=== PATIENT | female | born 1980 | race African-American/Black ===

== ENCOUNTER 2021-05-14 17:58 | Emergency (ER) | payer SELFPAY ==
[2021-05-14] MEDS ORDERED: Bisacodyl 10 MG SUPP ONE (20:08)
[2021-05-14] MEDS ORDERED: Ondansetron PF 4 MG/2 ML Vial ONE (20:09)
[2021-05-14] MEDS ORDERED: Morphine 4 MG/ML VIAL ONE (20:10)
[2021-05-14] MEDS ORDERED: Haloperidol Lactate 5 MG/ML VIAL ONE (21:26)
[2021-05-14] MEDS ORDERED: Glycerin Adult Supp. (24 ct jar) RC SCH (21:45)
[2021-05-14 21:52] LABS: #Monocytes 0.4 10x3/uL (0.0-1.1); %Basophils 0.2 % (0.0-2.0); %Eosinophils 0.1 % (0.0-6.0); %Lymphocytes 11.1 % (18.0-47.0); %Monocytes 2.8 % (0.0-10.0); %Neutrophils 85.5 % (40.0-75.0); Mean Corpuscular HGB CONC 32.7 g/dL (32.0-36.0); Mean Corpuscular Hemoglobin 33.7 pg (27.0-33.0); Mean Corpuscular Volume 102.8 fl (81.6-98.3); Mean Platelet Volume 9.8 fl (7.4-10.4); Platelet Count 315 10x3/uL (150-450); RBC Distribution Width 11.5 % (11.5-14.5); Red Blood Cell (RBC) Count 3.86 10x6/uL (3.90-5.03); White Blood Cell (WBC) Count 12.9 10x3/uL (3.5-10.5)
[2021-05-14] MEDS ORDERED: Fleet Enema 133 ML BOT PR SCH (22:00)
[2021-05-14 22:02] LABS: BHCG - Serum Negative (NEGATIVE); Pregs Control Background? CLEAR/WHITE (CLR/WHITE); Pregs Control Bar Appear? YES (CONTROL BAR)
[2021-05-14 22:10] LABS: ALT (SGPT) 14 U/L (8-55); AST (SGOT) 20 U/L (5-34); Albumin 4.3 g/dL (3.5-5.0); Alkaline Phosphatase 95 U/L (40-110); Anion Gap 18 mmol/L (10-20); BUN (Urea Nitrogen) 9 mg/dL (7.0-18.7); Bilirubin, Total 0.6 mg/dL (0.2-1.2); Calc. Creatinine Clearance 0 mL/min (70-130); Calcium 9.4 mg/dL (7.8-10.44); Carbon Dioxide 17 mmol/L (22-29); Chloride 105 mmol/L (98-107); Globulin 4.3 g/dL (2.4-3.5); Glucose 106 mg/dL (70-105); Lipase 9 U/L (8-78); Potassium 3.6 mmol/L (3.5-5.1); Protein, Total 8.6 g/dL (6.0-8.3); Sodium 136 mmol/L (136-145)
== END 2021-05-14 22:21 | disposition home or self-care (01) ==
LOC: CSHERS 17:58
DX: K59.00 Constipation, unspecified (principal); F17.210 Nicotine dependence, cigarettes, uncomplicated
CPT/HCPCS: 74176; 80053; 83690; 84703; 85025; 96374; 96375; J1630; J2270; J2405

== ENCOUNTER 2022-05-30 09:41 | Observation (INO) | payer BC ==
[2022-05-30] MEDS ORDERED: Ondansetron PF 4 MG/2 ML Vial ONE (10:23)
[2022-05-30] MEDS ORDERED: Morphine 4 MG/ML VIAL ONE ×3 (10:23→15:48)
[2022-05-30 10:58] LABS: #Basophils 0.1 10x3/uL (0.0-0.2); #Eosinphils 0.1 10x3/uL (0.0-0.5); #Monocytes 0.7 10x3/uL (0.0-1.1); #Neutrophils 7.5 10x3/uL (1.5-8.4); %Basophils 0.5 % (0.0-2.0); %Eosinophils 1.2 % (0.0-6.0); %Lymphocytes 25.2 % (18.0-47.0); %Monocytes 6.2 % (0.0-10.0); %Neutrophils 66.5 % (40.0-75.0); Hemoglobin 13.6 g/dL (12.0-15.5); Mean Corpuscular HGB CONC 33.9 g/dL (32.0-36.0); Mean Corpuscular Hemoglobin 33.2 pg (27.0-33.0); Mean Corpuscular Volume 97.8 fl (81.6-98.3); Mean Platelet Volume 10.7 fl (7.4-10.4); Platelet Count 367 10x3/uL (150-450); White Blood Cell (WBC) Count 11.3 10x3/uL (3.5-10.5)
[2022-05-30 11:19] LABS: ALT (SGPT) 39 U/L (8-55); AST (SGOT) 41 U/L (5-34); Albumin 4.7 g/dL (3.5-5.0); Alkaline Phosphatase 92 U/L (40-110); Anion Gap 18 mmol/L (10-20); BUN (Urea Nitrogen) 13 mg/dL (7.0-18.7); Bilirubin, Total 0.8 mg/dL (0.2-1.2); Calc. Creatinine Clearance 0 mL/min (70-130); Carbon Dioxide 18 mmol/L (22-29); Chloride 102 mmol/L (98-107); Estimated GFR 77; Glucose 95 mg/dL (70-105); Lipase 19 U/L (8-78); Potassium 4.2 mmol/L (3.5-5.1); Protein, Total 8.7 g/dL (6.0-8.3); Sodium 134 mmol/L (136-145)
[2022-05-30] MEDS ORDERED: Haloperidol Lactate 5 MG/ML VIAL ONE (13:00)
[2022-05-30] MEDS ORDERED: Pantoprazole 40 MG VIAL ONE (13:36)
[2022-05-30] MEDS ORDERED: Famotidine/PF 20 mg/2ml Vial ONE (13:36)
[2022-05-30 14:12] LABS: Lactic Acid 2.9 mmol/L (0.5-2.2)
[2022-05-30] MEDS ORDERED: Acetaminophen 325 MG TAB PO PRN (14:46)
[2022-05-30] MEDS ORDERED: HYDROcodone/Acetaminophen 5/325 mg Tablet PO PRN ×2 (14:46→22:02)
[2022-05-30] MEDS ORDERED: Labetalol HCl 100 MG/20 ML VIAL SLOW IVP PRN (14:49)
[2022-05-30] MEDS ORDERED: Scopolamine 1.5 mg/72 hour Patch TD SCH ×2 (15:00→21:00)
[2022-05-30] MEDS ORDERED: Labetalol HCl 100 MG/20 ML VIAL IVPB SCH (15:00)
[2022-05-30 15:22] LABS: BHCG - Serum Negative (NEGATIVE); Pregs Control Background? CLEAR/WHITE (CLR/WHITE); Pregs Control Bar Appear? YES (CONTROL BAR)
[2022-05-30] MEDS ORDERED: Iopamidol 300 61% 100 ML VIAL FS ONE (15:35)
[2022-05-30] MEDS ORDERED: Labetalol HCl 100 MG/20 ML VIAL ONE (15:41)
[2022-05-30] MEDS ORDERED: Morphine 2 MG/ML VIAL SLOW IVP PRN (15:48)
[2022-05-30] MEDS ORDERED: Losartan Potassium 50 MG TAB PO SCH (16:00)
[2022-05-30] MEDS ORDERED: Pantoprazole 40 MG VIAL IVP SCH (16:00)
[2022-05-30] MEDS: Metoclopramide HCl 10 MG/2 ML VIAL IVP SCH ×2 (16:28→22:01)
[2022-05-30] MEDS: HYDROcodone/Acetaminophen 10/325 mg Tablet PO SCH ×2 (16:49→21:58)
[2022-05-30] MEDS: Ondansetron PF 4 MG/2 ML Vial IVP PRN (16:49)
[2022-05-30] MEDS ORDERED: Senokot S 8.6-50 MG TAB PO PRN (16:54)
[2022-05-30] MEDS ORDERED: Naloxone HCl 0.4 mg/ml Vial IV PRN (16:54)
[2022-05-30] MEDS: Amlodipine 5 MG TAB PO SCH (21:09)
[2022-05-30] MEDS ORDERED: Sodium Chloride 0.9% 1,000 ML IV SCH (22:15)
[2022-05-31] MEDS: Acetaminophen 325 MG TAB PO PRN ×3 (01:13→16:37)
[2022-05-31] MEDS: Metoclopramide HCl 10 MG/2 ML VIAL IVP SCH ×4 (07:19→20:54)
[2022-05-31] MEDS: Pantoprazole 40 MG VIAL IVP SCH (08:40)
[2022-05-31] MEDS: Ondansetron PF 4 MG/2 ML Vial IVP PRN ×2 (09:05→16:41)
[2022-05-31] MEDS: Amlodipine 5 MG TAB PO SCH ×2 (11:18→20:55)
[2022-05-31] MEDS: Losartan Potassium 50 MG TAB PO SCH (11:19)
[2022-05-31] MEDS: Morphine 4 MG/ML VIAL SLOW IVP PRN ×2 (13:19→20:11)
[2022-06-01] MEDS: Acetaminophen 325 MG TAB PO PRN ×2 (03:08→08:52)
[2022-06-01] MEDS: Ondansetron PF 4 MG/2 ML Vial IVP PRN (06:11)
[2022-06-01] MEDS: Amlodipine 5 MG TAB PO SCH (08:51)
[2022-06-01] MEDS: Losartan Potassium 50 MG TAB PO SCH (08:51)
[2022-06-01] MEDS: Metoclopramide HCl 10 MG/2 ML VIAL IVP SCH ×2 (08:52→11:54)
[2022-06-01] MEDS: Pantoprazole 40 MG VIAL IVP SCH (08:52)
[2022-06-01] MEDS: Morphine 4 MG/ML VIAL SLOW IVP PRN (11:03)
[2022-06-01 11:10] VITALS: BP 135/77
[2022-06-01 11:51] VITALS: TEMP 99.6
== END 2022-06-01 13:56 | disposition home or self-care (01) ==
LOC: CSHERS 09:41 → INTOOBSV 15:37 → CSHPED 15:37
PROVIDERS: ADMIT Family Medicine; ATTEND Family Medicine
DX: R10.9 Unspecified abdominal pain (principal); R11.2 Nausea with vomiting, unspecified; I10 Essential (primary) hypertension; F41.9 Anxiety disorder, unspecified; Z88.1 Allergy status to other antibiotic agents; Z79.899 Other long term (current) drug therapy; Z98.890 Other specified postprocedural states; Z90.49 Acquired absence of other specified parts of digestive tract
CPT/HCPCS: 36415; 70450; 71045; 74177; 80053; 83605; 83690; 84484; 84703; 85025; 93005; 94760; 96361; 96374; 96375; 96376; C9113; G0378; J1630; J2270; J2405; J2765; Q9967; S0028

== ENCOUNTER → 2024-05-31 | Day surgery (SDC) | payer BC | LOC: CSHMAMMO 07:28 | PROVIDERS: ATTEND Family Medicine | PROC: 0H95XZX Drainage of Chest Skin, External Approach, Diagnostic (ICD-10-PCS; principal; 2024-05-31) | DX: N63.21 Unspecified lump in the left breast, upper outer quadrant (principal); N60.82 Other benign mammary dysplasias of left breast; R92.1 Mammographic calcification found on diagnostic imaging of breast; Z88.2 Allergy status to sulfonamides | CPT/HCPCS: 19081; 76098; 88305 ==